=== PATIENT | female | born 1990 | race American Indian/Alaskan Native ===

== ENCOUNTER 2017-08-05 09:40 | Outpatient (CLI) | payer MEDICAID, OTHER ==
[2017-08-05] MEDS ORDERED: LACTATED RINGERS 500 ML IV ONE (09:57)
[2017-08-05 10:32] LABS: Bacteria,Urine 1+ /HPF (Negative); Bilirubin,Urine NEG (Negative); Blood,Urine NEG (Negative); Ketones,Urine 20 mg/dL (Negative); Leukocyte Esterase,Urine TR (Negative); Mucus,Urine FEW /HPF; Nitrite,Urine NEG (Negative); Protein,Urine <15 mg/dL mg/dL (Negative)
[2017-08-05 12:14] VITALS: BP 98/52
== END 2017-08-05 12:52 | disposition home or self-care (01) ==
LOC: TRG 09:40
PROVIDERS: ATTEND Obstetrics & Gynecology
DX: O47.02 False labor before 37 completed weeks of gestation, second trimester (principal); Z3A.22 22 weeks gestation of pregnancy
CPT/HCPCS: 59025; 81001; 96360; J7120

== ENCOUNTER 2017-08-05 12:58 | Emergency (ER) | payer MEDICAID ==
--- NOTE | 2017-08-05 14:03 | Emergency Department Report ---
Chief Complaint: Abdominal Pain Stated Complaint: ABD PAIN 23 WEEKS PREG. - HPI History of Present Illness: 26-year-old female approximately 23 weeks presents with complaint of bilateral hip discomfort. Denies vaginal bleeding or anterior abdominal discomfort. Denies dysuria or increased urinary frequency. patient was seen in labor and delivery before coming to the ED - ROS Review of Systems: 23 weeks - Exam Vital Signs: Vital Signs 08/05/17 13:24 Temperature 97.6 F Pulse Rate 112 H Respiratory 22 Rate Blood Pressure 120/67 O2 Sat by Pulse 99 Oximetry Physical Exam: Patient is ambulatory, gravid abdomen MSE screening note: Focused history and physical exam performed. Due to findings the following was ordered: Screening Assessment/Plan/Differential Dx: Musculoskeletal hip pain and patient 1- This initial assessment/diagnostic orders/clinical plan/ treatment(s) is/are subject to change based on pt's health status, clinical progression and re- assessment by fellow clinical providers in the ED. Further treatment and workup at subsequent clinical provers discretion. Patient/guardians urged not to elope from ED as their condition may be serious if not clinically assessed and managed. 2-patient has no dysuria or increased urinary frequency no vaginal bleeding reports or reports of abdominal pain 3-possibly musculoskeletal hip pain secondary to advanced stage ED Disposition for MSE Condition: Stable Instructions: Abdominal Pain (ED)
[2017-08-05] MEDS ORDERED: TYLENOL PO ONE (15:36)
--- NOTE | 2017-08-05 15:42 | Emergency Department Report ---
HPI - General Chief Complaint: Abdominal Pain Time Seen by Provider: 08/05/17 15:12 - HPI HPI: This is a 26 year-old female presents the emergency department , sent over by L&D, with complaint of bilateral hip and/or groin pain. She says that this been going on for the past 3 weeks but also she had these symptoms in the past before her . She is currently at about 23 weeks with twin gestation. She denies any trauma. She had urinalysis, IV fluids over at L&D, had the twins evaluated, and had her cleared as the source of her discomfort prior to being sent to the emergency department. She otherwise denies any past medical history. She took Tylenol once for her symptoms prior to presentation without any relief. She does to Dr. Lemus at [facility]. She does not have a primary care physician. No recent travel or sick contacts at home. ED Past Medical Hx - Past Medical History Previous Medical History?: Yes Hx Hypertension: No Hx Diabetes: No Hx Deep Vein Thrombosis: No Hx Renal Disease: No Hx Sickle Cell Disease: No Hx Seizures: No Hx Asthma: No Hx HIV: No Additional medical history: Vaginal dleivery x 2 - Surgical History Past Surgical History?: No - Social History Smoking Status: Never Smoker Substance Use Type: Prescribed - Medications Home Medications: Home Medications Medication Instructions Recorded Confirmed Last Taken Type Vit Calc,Iron,Folic 1 each PO QDAY #30 tablet 03/03/16 08/05/17 Unknown Rx [ Vitamins] ED Review of Systems ROS: Stated complaint: ABD PAIN 23 WEEKS PREG. Other details as noted in HPI Comment: All other systems reviewed and negative Constitutional: denies: chills, fever Eyes: denies: eye pain, eye discharge, vision change ENT: denies: ear pain, throat pain Respiratory: denies: cough, shortness of breath, wheezing Cardiovascular: denies: chest pain, palpitations Gastrointestinal: denies: abdominal pain, nausea, diarrhea Genitourinary: denies: urgency, dysuria, discharge Musculoskeletal: arthralgia. denies: back pain Skin: denies: rash, lesions Neurological: denies: headache, weakness, paresthesias Physical Exam - Physical Exam Vital Signs: Vital Signs 08/05/17 13:24 Temperature 97.6 F Pulse Rate 112 H Respiratory 22 Rate Blood Pressure 120/67 O2 Sat by Pulse 99 Oximetry Physical Exam: GENERAL: The patient is well-developed well-nourished. HENT: Normocephalic. Atraumatic. Patient has moist mucous membranes. EYES: Extraocular motions are intact. Pupils equal reactive to light bilaterally. NECK: Supple. Trachea is midline. CHEST/LUNGS: Clear to auscultation. There is no respiratory distress noted. HEART/CARDIOVASCULAR: Regular. There is no tachycardia. There is no murmur. ABDOMEN: Abdomen is soft, nontender. Patient has normal bowel sounds. Gravid uterus palpable just above the umbilicus. SKIN: Skin is warm and dry. NEURO: The patient is awake, alert, and oriented. The patient is cooperative. The patient has no focal neurologic deficits. The patient has normal speech and gait. MUSCULOSKELETAL: Unable to reproduce the hip pain to palpation. No obvious deformity. There is no limitation range of motion. There is no evidence of acute injury. ED Course Vital Signs 08/05/17 13:24 Temperature 97.6 F Pulse Rate 112 H Respiratory 22 Rate Blood Pressure 120/67 O2 Sat by Pulse 99 Oximetry ED Medical Decision Making - Lab Data Result diagrams: 08/05/17 15:55 08/05/17 15:55 - Radiology Data Radiology results: report reviewed PROCEDURE: US PELVIS DUPLEX DOPPLER LTD TECHNIQUE: Real-time transabdominal sonography in multiple planes of the pelvis was performed with image documentation. Grayscale, color flow Doppler imaging and velocity spectral waveform analysis of the ovaries was employed (duplex imaging). CPT 36327 and 62182 HISTORY: groin pain, evaluation of ovaries, twin COMPARISON: No prior studies are available for comparison. FINDINGS: Note is made of a twin intrauterine . Uterus and are not evaluated. Fetus A heart rate is 149 beats per minute. Fetus B heart rate is 158 beats per minute. RIGHT Ovary: 3.8 x 2.2 x 3.5 cm. Appearance: Normal. Doppler images: Normal spectral waveforms and color flow. The systolic and diastolic velocities are within normal limits. LEFT Ovary: 3.1 x 1.7 x 1.4 cm. Appearance: Normal. Doppler images: Normal spectral waveforms and color flow. The systolic and diastolic velocities are within normal limits. Pelvic fluid: None. IMPRESSION: Transabdominal evaluation of the ovaries is unremarkable. Transcribed By: PAOLA Dictated By: MU DU M.D. Electronically Authenticated By: MU DU M.D. Signed Date/Time: 08/05/17 5940 - Medical Decision Making This patient has some bilateral pain in the area of the hip into her groin. No palpable hernia. There is been no trauma. Is going on for the past 2 weeks during her but also occurred prior to being . Her was evaluated over at labor and delivery prior to coming to the emergency department and everything was fine. An ultrasound was done to evaluate the ovaries which also appeared to be normal. Patient seen ambulatory without any instability. This was no trauma, and since the patient is , I did not want to x-ray the hips and/or pelvis. She is encouraged to follow up with her primary care physician and return with any worsening of her symptoms or any acute distress. Critical Care Time: No Critical care attestation.: If time is entered above; I have spent that time in minutes in the direct care of this critically ill patient, excluding procedure time. ED Disposition Clinical Impression: Hip pain, bilateral Qualifiers: Weeks of gestation: unspecified Qualified Code(s): Z34.90 - Encounter for supervision of normal , unspecified, unspecified trimester Groin pain Qualifiers: Laterality: unspecified laterality Qualified Code(s): R10.30 - Lower abdominal pain, unspecified Disposition: DC-01 TO HOME OR SELFCARE Is pt being admited?: No Condition: Stable Instructions: Arthralgia (ED), Groin Pain (ED) Additional Instructions: Please follow up with a primary care physician in the next few days. Please follow-up with your [facility] physician also in the next few days. Return to the emergency Department with any worsening of her symptoms, vaginal bleeding, sharp abdominal and/or pelvic pain, or any acute distress. Referrals: WILNER MATTHEWS MD [Primary Care Provider] - 3-5 Days Time of Disposition: 20:14
[2017-08-05 16:32] LABS: Basophils % (Auto) 0.2 % (0.0-1.8); Eosinophils % (Auto) 1.3 % (0.0-4.3); Hematocrit 32.5 % (30.3-42.9); Hemoglobin 10.9 gm/dl (10.1-14.3); Mean Corpuscular HGB Conc 34 % (30-34); Mean Corpuscular Hemoglobin 28 pg (28-32); Mean Corpuscular Volume 83 fl (79-97); Platelet Count 261 K/mm3 (140-440); Red Blood Count 3.94 M/mm3 (3.65-5.03); Red Cell Distribution Width 13.6 % (13.2-15.2); White Blood Count 7.4 K/mm3 (4.5-11.0)
[2017-08-05 16:37] VITALS: BP 119/57
[2017-08-05 16:38] LABS: Anion Gap 19 mmol/L; BUN/Creatinine Ratio 15; Blood Urea Nitrogen 6 mg/dL (7-17); Calcium 8.8 mg/dL (8.4-10.2); Carbon Dioxide 23 mmol/L (22-30); Chloride 102.2 mmol/L (98-107); Glucose 112 mg/dL (65-100); Potassium 4.7 mmol/L (3.6-5.0); Sodium 139 mmol/L (137-145)
--- NOTE | 2017-08-05 19:53 | Ultrasound Report ---
FINAL REPORT PROCEDURE: US PELVIS DUPLEX DOPPLER LTD TECHNIQUE: Real-time transabdominal sonography in multiple planes of the pelvis was performed with image documentation. Grayscale, color flow Doppler imaging and velocity spectral waveform analysis of the ovaries was employed (duplex imaging). CPT 85663 and 15215 HISTORY: groin pain, evaluation of ovaries, twin COMPARISON: No prior studies are available for comparison. FINDINGS: Note is made of a twin intrauterine . Uterus and are not evaluated. Fetus A heart rate is 149 beats per minute. Fetus B heart rate is 158 beats per minute. RIGHT Ovary: 3.8 x 2.2 x 3.5 cm. Appearance: Normal. Doppler images: Normal spectral waveforms and color flow. The systolic and diastolic velocities are within normal limits. LEFT Ovary: 3.1 x 1.7 x 1.4 cm. Appearance: Normal. Doppler images: Normal spectral waveforms and color flow. The systolic and diastolic velocities are within normal limits. Pelvic fluid: None. IMPRESSION: Transabdominal evaluation of the ovaries is unremarkable.
== END 2017-08-05 20:32 | disposition home or self-care (01) ==
LOC: ED 12:58
DX: O26.892 Other specified pregnancy related conditions, second trimester (principal); M25.551 Pain in right hip; M25.552 Pain in left hip; R10.30 Lower abdominal pain, unspecified; Z3A.23 23 weeks gestation of pregnancy; Z91.018 Allergy to other foods
CPT/HCPCS: 36415; 80048; 81001; 85025; 93976; 96360; J7120